=== PATIENT | male | born 1970 | race Caucasian/White ===

== ENCOUNTER 2021-04-30 08:46 | Outpatient (REF) | payer BC, SELFPAY ==
[2021-04-30 13:38] LABS: Calculated LDL 126 mg/dL (<100); Cholesterol 190 mg/dL (<200); Glucose 115 mg/dL (74-106); HDL Cholesterol 48 mg/dL (40-60); Triglyceride 80 mg/dL (<150)
== END 2021-04-30 08:47 | disposition home or self-care (01) ==
LOC: NCHCN 08:46
PROVIDERS: PCP Family Medicine; Visit Provider Family Medicine
DX: Z00.00 Encounter for general adult medical examination without abnormal findings (principal); Z13.1 Encounter for screening for diabetes mellitus; Z13.220 Encounter for screening for lipoid disorders
CPT/HCPCS: 80061; 82947